=== PATIENT | female | born 1980 | race Caucasian/White ===

== ENCOUNTER 2018-02-02 22:38 | Emergency (ER) | payer OTHER ==
[2018-02-02] MEDS ORDERED: Metoclopramide IV* 5 MG/ML 2 ML VIAL IV SLOW PU ONE (23:13)
[2018-02-02] MEDS ORDERED: NS 0.9% 1000 ML* 1,000 ML IV ONE (23:13)
[2018-02-02] MEDS ORDERED: Ketorolac INJ* 30 MG/ML 1 ML VIAL IV PUSH ONE (23:13)
[2018-02-02] MEDS ORDERED: diPHENhydraMINE PO* 50 MG PO ONE (23:14)
--- NOTE | 2018-02-02 23:15 | ED ---
GI/ HPI - HPI Summary HPI Summary: This patient is a 37 year old F presenting to [facility] with a chief complaint of vomiting since 2 hours ago. The patient reports nausea, diarrhea and headache as well. She rates the pain of the headache 6/10 in severity. She has not eaten since breakfast and states she started feeling nauseous when she woke up this morning. - History of Current Complaint Chief Complaint: EDNauseaVomitDiarrh Time Seen by Provider: 02/02/18 22:59 Stated Complaint: VOMITING Hx Obtained From: Patient Onset/Duration: Started Hours Ago Timing: Intermittent Severity: Moderate Current Severity: Moderate Pain Intensity: 6 Associated Signs and Symptoms: Positive: Nausea, Vomiting, Diarrhea - Allergy/Home Medications Allergies/Adverse Reactions: Allergies Allergy/AdvReac Type Severity Reaction Status Date / Time No Known Allergies Allergy Verified 02/02/18 22:55 Home Medications: Home Medications LORazepam [Lorazepam] 1 tab PO BEDTIME PRN 02/02/18 [History Confirmed 02/02/18] Levothyroxine Sodium 75 mcg PO DAILY 02/02/18 [History Confirmed 02/02/18] Sertraline* [Zoloft*] 200 mg PO DAILY 02/02/18 [History Confirmed 02/02/18] PMH/Surg Hx/FS Hx/Imm Hx Endocrine/Hematology History: Denies: Hx Diabetes Cardiovascular History: Denies: Hx Coronary Artery Disease GI History: Reports: Hx Gall Bladder Disease - Immunization History Date of Tetanus Vaccine: unk Date of Influenza Vaccine: none Infectious Disease History: No Infectious Disease History: Denies: Traveled Outside the [place] in Last 30 Days - Family History Known Family History: Negative: Cardiac Disease, Hypertension, Diabetes - Social History Alcohol Use: Rare Substance Use Type: Reports: None Smoking Status (MU): Never Smoked Tobacco Review of Systems Positive: Vomiting, Diarrhea, Nausea Positive: Headache All Other Systems Reviewed And Are Negative: Yes Physical Exam - Summary Physical Exam Summary: VITAL SIGNS: Reviewed. GENERAL: Patient is a morbidly obese FEMALEwho is lying comfortable in the stretcher. Patient is not in any acute respiratory distress. HEAD AND FACE: No signs of trauma. No ecchymosis, hematomas or skull depressions. No sinus tenderness. EYES: PERRLA, EOMI x 2, No injected conjunctiva, no nystagmus. EARS: Hearing grossly intact. Ear canals and tympanic membranes are within normal limits. MOUTH: Oropharynx within normal limits. NECK: Supple, trachea is midline, no adenopathy, no JVD, no carotid bruit, no c- spine tenderness, neck with full ROM. CHEST: Symmetric, no tenderness at palpation LUNGS: Clear to auscultation bilaterally. No wheezing or crackles. CVS: Regular rate and rhythm, S1 and S2 present, no murmurs or gallops appreciated. ABDOMEN: Soft, non-tender. No signs of distention. No rebound no guarding, and no masses palpated. Bowel sounds are normal. EXTREMITIES: FROM in all major joints, no edema, no cyanosis or clubbing. NEURO: Alert and oriented x 3. No acute neurological deficits. Speech is normal and follows commands. SKIN: Dry and warm Triage Information Reviewed: Yes Vital Signs On Initial Exam: Initial Vitals Temp Pulse Resp BP Pulse Ox 98.1 F 104 20 122/91 98 02/02/18 22:52 02/02/18 22:52 02/02/18 22:52 02/02/18 22:52 02/02/18 22:52 Vital Signs Reviewed: Yes Diagnostics - Vital Signs Vital Signs Temp Pulse Resp BP Pulse Ox 02/02/18 22:52 98.1 F 104 20 122/91 98 - Laboratory Result Diagrams: 02/02/18 23:24 02/02/18 23:24 Lab Statement: Any lab studies that have been ordered have been reviewed, and results considered in the medical decision making process. GIGU Course/Dx - Course Course Of Treatment: This patient is a 37 year old F presenting to [facility] with a chief complaint of vomiting since 2 hours ago. The patient reports nausea, diarrhea and headache as well. The patient was administered diphenhydramine, ketorolac, and metoclopramide. Upon reevaulation, she stated she was feelign better. Plan for discharge was discussed with the patient and she was agreeable with this plan. - Diagnoses Provider Diagnoses: Vomiting, Headache Discharge - Sign-Out/Discharge Documenting (check all that apply): Patient Departure - Discharge - Discharge Plan Condition: Stable Disposition: HOME Patient Education Materials: Acute Headache (ED), Acute Nausea and Vomiting (ED ) Referrals: Shawn Stein MD [Primary Care Provider] - - Attestation Statements Document Initiated by Scribe: Yes Documenting Scribe: Flaquito Mcginnis Provider For Whom Scribe is Documenting (Include Credential): Kat Rojas Scribe Attestation: I, Flaquito Mcginnis, scribed for Kat Rojas on 02/03/18 at 0040. Status of Scribe Document: Ready
[2018-02-02 23:31] LABS: ABS Basophils 0 10^3/ul (0-0.2); ABS Eosinophils 0.1 10^3/ul (0-0.6); ABS Lymphocytes 0.2 10^3/ul (1.0-4.8); ABS Monocytes 0.5 10^3/ul (0-0.8); ABS Neutrophils 12.2 10^3/ul (1.5-7.7); ABS Nucleated RBC 0 10^3/ul; Eosinophil % 0.5 %; Hematocrit 39 % (35-47); Hemoglobin 13.9 g/dl (12.0-16.0); Lymphocyte % 1.9 %; Mean Corpuscular HGB Conc 36 g/dl (31-36); Mean Corpuscular Hemoglobin 32 pg (27-31); Mean Corpuscular Volume 90 fL (80-97); Mean Platelet Volume 6.1 fL (7.4-10.4); Nucleated Red Blood Cells % 0; Platelet Count 173 10^3/ul (150-450); Red Blood Count 4.32 10^6/ul (4.00-5.40); Red Cell Distribution Width 14 % (10.5-15)
[2018-02-02 23:47] LABS: ALT 39 U/L (7-52); AST 58 U/L (13-39); Albumin 4.4 g/dL (3.2-5.2); Albumin/Globulin Ratio 1.5 (1-3); Alkaline Phosphatase 68 U/L (34-104); Amylase 35 U/L (29-103); Anion Gap 8 mmol/L (2-11); Blood Urea Nitrogen 18 mg/dL (6-24); CO2 Carbon Dioxide 23 mmol/L (22-32); Calcium 9.2 mg/dL (8.6-10.3); Chloride 105 mmol/L (101-111); EGFR Non-African American 87.4 (>60); Glucose 117 mg/dL (70-100); Magnesium 1.8 mg/dL (1.9-2.7); Potassium 4.1 mmol/L (3.5-5.0); Sodium 136 mmol/L (135-145); Total Protein 7.4 g/dL (6.4-8.9)
[2018-02-02 23:53] LABS: HCG Pregnancy < 0.60 mIU/mL
[2018-02-03 00:20] LABS: Urine Appearance Cloudy; Urine Bilirubin Negative (Negative); Urine Blood Negative (Negative); Urine Color Yellow; Urine Glucose Negative (Negative); Urine Ketones Negative (Negative); Urine Nitrite Negative (Negative); Urine Protein Negative (Negative); Urine Specific Gravity 1.026 (1.010-1.030); Urine Urobilinogen Negative (Negative)
[2018-02-03 01:09] VITALS: BP 102/63
== END 2018-02-03 01:10 | disposition home or self-care (01) ==
LOC: ED 22:38
DX: R11.2 Nausea with vomiting, unspecified (principal); R19.7 Diarrhea, unspecified; R51 Headache
CPT/HCPCS: 36415; 80053; 81003; 82150; 83690; 83735; 84702; 85025; 96374; 96375; 99283; A9270-GY; J1885; J2765

== ENCOUNTER 2018-06-16 07:02 | Observation (INO) | payer OTHER ==
[~2018-06-16 07:02] MED LIST: Buffered Lidocaine 1% SYRIN* 1 ML/SYRINGE INTRADERM ONE; Famotidine IV* 10 MG/ML 2 ML (20 mg) IV ONE; Lactated Ringers 1000 ML Bag* 1,000 ML IV SCH
[2018-06-16] MEDS ORDERED: Famotidine IV* 10 MG/ML 2 ML (20 mg) ONE (07:34)
[2018-06-16] MEDS ORDERED: Buffered Lidocaine 1% SYRIN* 1 ML/SYRINGE INTRADERM ONE (07:34)
[2018-06-16] MEDS ORDERED: Dexamethasone IV* 4 MG/ML 1 ML (4 MG) ONE (09:04)
[2018-06-16] MEDS ORDERED: Ondansetron INJ* 2 MG/ML VIAL ONE ×2 (09:04→15:37)
[2018-06-16] MEDS ORDERED: Lidocaine 2% MPF* 2 ML VIAL ONE (09:04)
[2018-06-16] MEDS ORDERED: Propofol* 10 MG/ML 20 ML BTL ONE (09:04)
[2018-06-16] MEDS ORDERED: Midazolam* 1 MG/ML 5 ML VIAL (5 MG) ONE (09:05)
[2018-06-16] MEDS ORDERED: Cisatracurium* 2 MG/ML MDV 5 ML ONE (09:05)
[2018-06-16] MEDS ORDERED: fentaNYL* 50 MCG/ML 2 ML VIAL (100 MCG VIAL) ONE ×2 (09:05→13:48)
[2018-06-16] MEDS ORDERED: Lidocain 1% EPI 1:100,000 * 30 ML MDV ONE (09:24)
[2018-06-16] MEDS ORDERED: Bupivacaine 0.25% SDV PF* 10 ML VIAL INJ ONE (09:24)
[2018-06-16] MEDS ORDERED: HYDROmorphone INJ1* 1 MG/ML SYRINGE ONE (12:14)
[2018-06-16] MEDS ORDERED: Naloxone* 0.4 MG/ML 1 ML VIAL IV PRN (12:22)
[2018-06-16] MEDS ORDERED: Ondansetron INJ* 2 MG/ML VIAL IV PRN ×2 (12:22→15:37)
[2018-06-16] MEDS ORDERED: DiMENhydriNATE IV* 50 MG/ML VIAL IV PUSH PRN (12:22)
[2018-06-16] MEDS ORDERED: fentaNYL* 50 MCG/ML 2 ML VIAL (100 MCG VIAL) IV PRN (12:22)
[2018-06-16] MEDS ORDERED: DiMENhydriNATE IV* 50 MG/ML VIAL ONE (13:20)
--- NOTE | 2018-06-16 14:44 | OP ---
OPERATIVE REPORT: DATE OF OPERATION: 06/16/18 DATE OF : 82 ATTENDING SURGEON: Steve Gomez MD RECORD CHANGER: Jeet Mcgowan MD ANESTHESIA: General. PRE-OP DIAGNOSES: 1. Malignant neoplasm, thyroid gland. 2. Thyroglossal duct cyst. POST-OP DIAGNOSES: 1. Malignant neoplasm thyroid gland. 2. Thyroglossal duct cyst. OPERATIVE PROCEDURE: Total thyroidectomy and Nav procedure. ESTIMATED BLOOD LOSS: Less than 15 cc. SPECIMENS: 1. Thyroglossal duct cyst with attached central portion of hyoid bone. 2. Total thyroid. DESCRIPTION OF PROCEDURE: This is a 38-year-old woman who was initially diagnosed with a high anteri or neck mass consistent with thyroglossal duct cyst. During workup for this, a left-sided thyroid no dule was then noted. It was 2 cm in greatest diameter and met criteria for fine needle aspiration, w hich was consistent with papillary carcinoma. The decision was made to bring the patient to the oper ating room for excision of both her thyroglossal duct cyst as well as her entire thyroid gland. On 06/16/18, the patient was brought to the operating room. General anesthesia was induced and a NIM endotracheal tube was placed. Appropriate positioning was confirmed visually using the GlideScope. Electrodes were then placed on the shoulder and the machine was found to be in good working order. The anterior neck was then marked, prepped with alcohol and approximately 8 cc of 1% lidocaine with 1 :100,000 epinephrine were infiltrated into the intended incision site. Separate incisions were made for both the Nav procedure as well as the total thyroidectomy. The neck was then prepped with B etadine. The patient was draped in sterile fashion. The procedure was begun. A 3-cm horizontal mid line incision was made over the thyroglossal duct cyst. The strap muscles were divided vertically to expose the cyst. The cyst was carefully dissected off of the thyrohyoid membrane and off of the maru rounding musculature using a bipolar device. The cyst was followed up to the central portion of the hyoid bone where it seemed to be tightly invested raising concern for probable tract extending into t he hyoid bone. The muscular attachment in the hyoid bone was removed superiorly with the Bovie as we ll as inferiorly. A rongeur was then used to make cuts on either side of the central portion of the hyoid bone. This allowed removal of the specimen. There did not appear to be further tracking of th e cyst or a tract into the tongue base. Once the specimen was removed, the wound was copiously irrig ated. Small potential bleeding sites were cauterized with bipolar cautery. The wound was then close d in layers with 3-0 Vicryl used to reapproximate the strap muscles as well as the platysma and 4-0 n ylon used to close the skin. Attention was then turned to the inferior intended incision site. A 15-blade was used to make a 6-cm horizontal incision low in the anterior neck. The subcutaneous soft tissue was dissected with a Bov ie cautery down to the level of the platysma. The platysma was then divided again utilizing Bovie cau vesna. Subplatysmal flaps were raised superiorly and inferiorly. Superiorly, there was a communicati on with the inferior extent of the surgical bed from the Nav procedure. The Arsalan self-retaini ng retractor was placed. The left lobe of the thyroid was addressed first. Strap muscles were eleva odilon off of the left lobe of the thyroid. Superior pole vascular pedicle was then exposed. It was li gated with Hemoclips and divided with a LigaSure device. Attention was then turned inferiorly where the tracheoesophageal groove was explored and the recurren t laryngeal nerve visually identified. It was confirmed with the nerve stimulator. It was used as a landmark to guide subsequent dissection. The inferior vascular pedicle was identified, ligated as c lose to the thyroid as possible in order to preserve perfusion of perithyroid soft tissue. Two parat hyroids were positively identified on the left side. These were dissected in continuity with their b lood supply and were able to be mobilized readily off the undersurface of the thyroid gland. The thy roid was then reflected medially. The middle thyroid vein was ligated with a Hemoclip and divided. The thyroid was then reflected off of the trachea. A very small remnant of thyroid tissue was left p resent where the nerve was entering the cricothyroid muscle. Once the left lobe was completely mobil ized, attention was turned to the right lobe. The strap muscles were elevated off of the right lobe. The superior vascular pedicle was identified, ligated with Hemoclips, and divided with LigaSure dev ice. Once the superior vascular pedicle was controlled, the tracheoesophageal groove was explored in feriorly. The recurrent laryngeal nerve was identified visually and confirmed with the stimulator. It was used as a landmark to guide further dissection. The inferior vascular pedicle was identified and ligated as close to the capsule of the gland as possible as was the middle thyroid vein. One can didate parathyroid was definitely seen on the right side and preserved with its blood supply apparent ly in good shape. Again, the thyroid was then reflected medially. A small amount of thyroid tissue was left overlying the nerve as it entered into the cricothyroid muscle and the remainder of the thyr oid was removed off the surface of the anterior wall of the trachea. Once the specimen was removed, the wound was copiously irrigated. Both nerves were stimulated and stimulated robustly. Surgicel wa s placed on either side of the trachea. The wound was then closed in layers. A #7 RYAN was placed. S trap muscles were reapproximated with 3-0 Vicryl as was the platysma. Final skin closure was done wi th 4-0 nylon. The drain was secured with a 4-0 Prolene and Steri-Strips were placed over both incisi ons. The patient was then delivered to the PACU in stable condition. [id number]/[facility] #: [id number]
[2018-06-16] MEDS ORDERED: Acetaminophen TAB* 325 MG PO PRN (15:20)
[2018-06-16] MEDS ORDERED: LORazepam TAB(*) 0.5 MG PO PRN (15:23)
[2018-06-16] MEDS ORDERED: Morphine INJ* 2 MG/ML 1 ML SYRINGE (TWO MG - NEW SYRINGE VERSION) IV PRN (15:33)
[2018-06-16] MEDS ORDERED: D5NS 0.9% 1000 ML BAG* 1,000 ML IV SCH (16:00)
[2018-06-16] MEDS ORDERED: Calcium Gluconate INJ* 1 GM in NS 0.9% 50 ML* 50 ML IV PRN (17:20)
--- NOTE | 2018-06-16 17:33 | HP ---
CC: Dr. Gomez; Dr. Stein* HISTORY AND PHYSICAL: DATE OF ADMISSION: 06/16/18 ATTENDING PHYSICIAN: Dr. Jolanta Nguyen* (dictated by Melody Harkins, BELKIS). PRIMARY CARE PROVIDER: Dr. Stein. CHIEF COMPLAINT: Papillary carcinoma of the thyroid. HISTORY OF PRESENT ILLNESS: Ms. Dalal is a 38-year-old female with past medical history significant for depression, anxiety, hypothyroidism and malignant neoplasm of the thyroid, who presented to [facility] for a thyroidectomy with Dr. Gomez. In the immediate preoperative period, the patient denies any fever, chills, nausea, vomiting, diarrhea, or abdominal pain. No cough, congestion, or hemoptysis. No dysuria or urinary frequency. Due to the findings of malignant neoplasm of the thyroid, she has opted for a total thyroidectomy with Dr. Gomez. We were asked to see and evaluate her for admission postoperatively. PAST MEDICAL HISTORY: 1. Depression. 2. Anxiety. 3. Hypothyroidism. 4. Malignant neoplasm of the thyroid. PAST SURGICAL HISTORY: Cholecystectomy. HOME MEDICATIONS: 1. Lorazepam 0.5 mg at bedtime as needed. 2. Levothyroxine 75 mcg p.o. daily. 3. Sertraline 200 mg p.o. daily at bedtime. 4. Claritin. 5. Loratadine 10 mg p.o. at bedtime. ALLERGIES: No known drug allergies. FAMILY HISTORY: Grandmother with open-heart surgery at the age of 82. No reported history of diabetes. Great-grandparents with throat cancer. Grandmother with colon cancer and other maternal grandmother with breast cancer. SOCIAL HISTORY: Denies any tobacco, alcohol or illicit drug use. She is a full code. Surrogate decision maker in the event she is unable to make her own decisions is her parents. REVIEW OF SYSTEMS: The patient denies any fever or unintended weight loss. Denies any chest pain or edema, cough, hemoptysis or shortness of breath. No nausea, vomiting, diarrhea, or abdominal pain. Denies any gross hematuria or dysuria. Denies any focal weakness or sensory loss, dysphagia, arthralgias, myalgias, rashes, lesions or open sores. The patient does complain of some mild neck pain postoperatively. PHYSICAL EXAMINATION GENERAL: At this time, Ms. Dalal is a 38-year-old female. She is resting on the bed in PACU. She is drowsy. VITAL SIGNS: Temperature was 96.6, heart rate was 81, respirations are between 11 to 20, O2 saturation 97%, blood pressure was 119/79. HEENT: Head is atraumatic, normocephalic. Eyes: EOMs are intact. Sclerae anicteric, not pale. Oral mucosa appeared to be dry. NECK: She has incision with RYAN drain noted with bloody drainage to the base of her anterior neck. LUNGS: Clear to auscultation bilaterally. No wheezes, rales or rhonchi. CARDIAC: S1 and S2. Regular rate and rhythm. No murmurs, rubs or gallops. ABDOMEN: Soft and nontender. Bowel sounds are present x4. EXTREMITIES: She can move all 4 extremities with 5/5 strength. NEUROLOGIC: She is drowsy. She is alert and oriented x3. Speech is soft. She is able to voice complaints. SKIN: She does have a surgical incision to the base of the anterior neck without any bleeding noted at this time. She does have RYAN drain with bloody drainage. DIAGNOSTIC STUDIES/LAB DATA: She has no previous lab work. She had a calcium drawn, was 8.9 at 1300. ASSESSMENT AND PLAN: Ms. Dalal is a 38-year-old female with past medical history significant for depression, anxiety, hypothyroidism, and papillary carcinoma of the thyroid who presented for a thyroidectomy with Dr. Gomez. She will be admitted under observation for: 1. Status post total thyroidectomy. Management per Dr. Gomez with calcium levels as per his recommendation. 2. Depression and anxiety. She can continue on her Zoloft and Ativan as needed. 3. Hypothyroidism. She will continue on levothyroxine 75 mcg p.o. daily. 4. Diet. She can have regular diet. 5. Code status. She is a full code. 6. DVT prophylaxis. SCD's TIME SPENT: Time spent on this admission was 60 minutes, greater than half that time was spent at the bedside reviewing the events leading thus far to her hospitalization, performing my physical exam and reviewing my plan of care. I have discussed this with my attending, Dr. Jolanta Nguyen; she is in agreement with my plan. MELODY HARKINS, RESIDENT CARE ASSOCIATE [id number]/[facility] #: [id number] [facility] MEDICAL CENTERRamesh
[2018-06-16] MEDS: Calcium Carbonate TAB* 1250 MG (CALCIUM 500 MG) PO SCH (17:56)
[2018-06-16] MEDS: Calcitriol CAP* 0.25 MCG PO SCH (17:56)
[2018-06-16] MEDS: HYDROcodone/ACET. 7.5/325 LIQ* 15 ML UDC PO PRN (20:25)
[2018-06-16] MEDS ORDERED: Cetirizine* 10 MG TAB PO SCH (21:00)
[2018-06-16] MEDS ORDERED: LORazepam TAB(*) 0.5 MG PO SCH (21:00)
[2018-06-16] MEDS ORDERED: Levothyroxine TAB* 75 MCG TAB PO SCH (21:00)
[2018-06-16] MEDS ORDERED: Sertraline* 100 MG TAB PO SCH (21:00)
[2018-06-17] MEDS: HYDROcodone/ACET. 7.5/325 LIQ* 15 ML UDC PO PRN ×2 (05:34→12:00)
[2018-06-17] MEDS ORDERED: Levothyroxine TAB* 75 MCG TAB PO SCH (06:00)
[2018-06-17] MEDS: Calcitriol CAP* 0.25 MCG PO SCH (08:25)
[2018-06-17] MEDS: Calcium Carbonate TAB* 1250 MG (CALCIUM 500 MG) PO SCH ×2 (08:25→12:00)
[2018-06-17 10:12] VITALS: BP 98/60
--- NOTE | 2018-06-17 20:38 | DS ---
CC: Dr. Shawn Stein; Dr. Seth Crump; Dr. Steve Gomez* DISCHARGE SUMMARY: DATE OF ADMISSION: 06/16/18 DATE OF DISCHARGE: 06/17/18 PRIMARY CARE PROVIDER: Dr. Shawn Stein. BOILER SETTER: Dr. Seth Crump. ENT: Dr. Steve Gomez. ATTENDING PHYSICIAN: Dr. Jolanta Nguyen* (dictated by Stacey Grey NP). PRIMARY DIAGNOSES: 1. Papillary carcinoma of the thyroid, status post total thyroidectomy. 2. Hypothyroidism. SECONDARY DIAGNOSES: 1. Depression. 2. Anxiety. PROCEDURES WHILE IN THE HOSPITAL: The patient underwent a total thyroidectomy with Dr. Gomez on 06/16/18. HISTORY OF PRESENT ILLNESS AND HOSPITAL COURSE: Ms. Dalal is a 38-year-old female with past medical history of depression, anxiety, hypothyroidism, and new diagnosis of papillary carcinoma of the thyroid who presented [place] [facility] [place] for an elective total thyroidectomy with Dr. Gomez. Please see the history and physical by Melody Harkins NP, for a complete summary of the events leading up to this hospitalization. In short, the patient recently had a biopsy of her thyroid revealing papillary carcinoma and elected to proceed with a total thyroidectomy. The surgery was uneventful and the patient recovered well. She was then admitted by the hospitalist service. The patient had an uneventful night. Calcium levels remained stable. Vital signs also remained stable. There were no respiratory concerns. This morning, Dr. Gomez saw the patient and removed her drain. At that point, he advised that the patient is stable for discharge with appropriate followup and new medications as directed by him. On exam, the patient reports feeling well. She denies any pain or other complaints. Heart has a regular rate and rhythm without murmurs, rubs, or gallops. Lungs are clear to auscultation without rhonchi, wheezes, or rales. Physical assessment is otherwise benign. The patient has tolerated a regular diet and is anxious to return home. Ms. Dalal is stable for discharge today. Vital signs are as follows: Temp 97.5, heart rate 75, respiratory rate 18, oxygen saturation 94% on room air, blood pressure 98/60. DISCHARGE MEDICATIONS: New Medication: Calcium carbonate 1200 mg p.o. t.i.d. Changed Medications: Levothyroxine 125 mcg p.o. daily (previously was 75 mcg p.o. daily). Continued Medications: 1. Loratadine 10 mg p.o. at bedtime. 2. Lorazepam 1 mg p.o. at bedtime. 3. Sertraline 200 mg p.o. at bedtime. DISCHARGE PLAN: Ms. Dalal will be discharged home. Activity will be as tolerated. Diet will be regular as tolerated. The patient has been given surgical site instructions by Dr. Gomez. Medications are noted above. The patient should take t.i.d. calcium carbonate at this point under the recommendations of Dr. Gomez. Additionally, I have increased the patient's levothyroxine per the recommendations of Dr. Gomez. She will need to follow up with her internet sourcer, Dr. Crump, for further adjustment of her dosing. She can continue her other usual medications as noted above. She should follow up with Dr. Gomez as instructed by him and has an appointment scheduled with him next week. She should also follow up with her primary care provider in 4 to 7 days. The patient should return to the emergency room or nearest hospital for any worsening of symptoms, shortness of breath, lightheadedness, dizziness, chest discomfort, high fever, chills, night sweats, loss of consciousness, or any other worrisome signs or symptoms. DISCHARGE CONDITION: Stable. DISCHARGE DISPOSITION: Home. This is a summarized report of a complex medical history and hospital stay. For further details, please see the entire medical record. TIME SPENT: Approximately 40 minutes were spent on this discharge. STACEY GREY, MANAGER ART [id number]/[facility] #: [id number] RAÚL
[2018-06-17] MEDS ORDERED: Sertraline* 100 MG TAB PO SCH (21:00)
== END 2018-06-17 15:00 | disposition home or self-care (01) ==
LOC: OR 07:02 → SSU 15:20
PROVIDERS: ADMIT Otolaryngology; ATTEND Internal Medicine
DX: C73 Malignant neoplasm of thyroid gland (principal); Q89.2 Congenital malformations of other endocrine glands; F32.9 Major depressive disorder, single episode, unspecified; F41.9 Anxiety disorder, unspecified; E03.9 Hypothyroidism, unspecified
CPT/HCPCS: 36415; 81025; 82310; 88305; 88307; 88311; 96374; 96375; A9270-GY; G0378; J1100; J1170; J1240; J2250; J2270; J2405; J2704; J3010; J3490